=== PATIENT | female | born 1935 | race African-American/Black ===

== ENCOUNTER 2021-04-16 01:37 | Emergency (ER) | payer OTHER ==
[~2021-04-16] VITALS: Ht 165.1 cm; Wt 55.0 kg
[2021-04-16] MEDS ORDERED: ONDANSETRON HCL 4MG/2ML INJ IV STA (01:55)
[2021-04-16] MEDS ORDERED: SODIUM CHLORIDE 0.9% 1,000 ML IV ONE (02:00)
[2021-04-16 03:36] LABS: HEMATOCRIT. 38.9 % (36.0-48.0); HEMOGLOBIN. 12.7 g/dL (12.0-16.0); MEAN CORPUSCULAR HEMOGLOBIN 30.3 pg (28.0-32.0); MEAN CORPUSCULAR VOLUME 93.2 fL (81.0-99.0); MEAN PLATELET VOLUME 10.5 fl (7.4-10.4); PLATELET 165 x1000/uL (130-400); RED BLOOD CELL COUNT 4.18 mill/uL (4.2-5.4); RED CELL DISTRIBUTION WIDTH 15.1 % (11.6-14.6)
[2021-04-16 03:57] LABS: CHLORIDE 114 mEq/L (98-107)
[2021-04-16] MEDS ORDERED: MORPHINE SULFATE 2 MG/ML CPJ (NOT FOR IM USE) IV ONE (04:00)
[2021-04-16 04:56] LABS: CLARITY URINE CLOUDY (CLEAR); COLOR URINE YELLOW (YELLOW); KETONES URINE NEGATIVE (NEGATIVE); LEUKOCYTE ESTERASE URINE 2+ (NEGATIVE); NITRITE URINE NEGATIVE (NEGATIVE); OCCULT BLOOD URINE NEGATIVE (NEGATIVE); PROTEIN URINE NEGATIVE (NEGATIVE); UROBILINOGEN URINE 0.2 E.U./dL (0.2-1.0)
[2021-04-16 05:21] LABS: PLATELET ESTIMATE NORMAL
[2021-04-16 06:48] VITALS: BP 140/77
== END 2021-04-16 07:05 | disposition short-term general hospital (02) ==
LOC: ER 01:37
DX: R53.1 Weakness (principal); R10.2 Pelvic and perineal pain; Z91.81 History of falling; R19.7 Diarrhea, unspecified; R11.2 Nausea with vomiting, unspecified; R10.9 Unspecified abdominal pain; N28.1 Cyst of kidney, acquired; I10 Essential (primary) hypertension; F03.90 Unspecified dementia, unspecified severity, without behavioral disturbance, psychotic disturbance, mood disturbance, and anxiety; Z86.73 Personal history of transient ischemic attack (TIA), and cerebral infarction without residual deficits
CPT/HCPCS: 36415; 70450; 71045; 72170; 74176; 80053; 81003; 83605; 83690; 85025; 93005; 96361; 96374; 96375; 99285; J2270; J2405; J7030